=== PATIENT | male | born 1960 | race African-American/Black ===

== ENCOUNTER 2022-10-15 01:32 | Emergency (ER) | payer MEDICAID ==
[~2022-10-15] VITALS: Ht 195.6 cm; Wt 103.7 kg
[~2022-10-15 01:32] MED LIST: CLAR10 MT; EPIN0.3P3 IM; FAMO-135 MT; FLUC200T51 PO; MED4 MT; OMEP20CA14 PO; PRAV40TA58 PO
[2022-10-15 05:45] VITALS: BP 148/90
[2022-10-15] MEDS ORDERED: IBUPROFEN 400MG TABLET PO ONE (05:45)
[2022-10-15 05:57] LABS: BASOPHILS % 0.6 % (0.0-2.0); EOSINOPHILS % 1.2 % (0.0-5.0); HEMATOCRIT. 40.9 % (42.0-52.0); HEMOGLOBIN. 13.6 g/dL (14.0-18.0); LYMPHOCYTES % 23.1 % (20.0-50.0); MEAN CORPUSCULAR HEMOGLOBIN 29.8 pg (28.0-32.0); MEAN CORPUSCULAR VOLUME 89.9 fL (80.0-94.0); MEAN PLATELET VOLUME 7.8 fl (7.4-10.4); MONOCYTES % 7.9 % (2.0-8.0); NEUTROPHILS % 67.2 % (40.0-76.0); PLATELET 227 x1000/uL (130-400); RED BLOOD CELL COUNT 4.55 mill/uL (4.7-6.1); RED CELL DISTRIBUTION WIDTH 16.2 % (11.6-14.6)
[2022-10-15 06:17] LABS: CLARITY URINE CLEAR (CLEAR); COLOR URINE YELLOW (YELLOW); KETONES URINE TRACE (NEGATIVE); LEUKOCYTE ESTERASE URINE NEGATIVE (NEGATIVE); NITRITE URINE NEGATIVE (NEGATIVE); OCCULT BLOOD URINE NEGATIVE (NEGATIVE); PH URINE 5.5 (4.5-8.0); PROTEIN URINE NEGATIVE (NEGATIVE); SPECIFIC GRAVITY URINE 1.022 (1.005-1.030)
[2022-10-15 06:54] LABS: CHLORIDE 101 mEq/L (98-107)
== END 2022-10-15 08:20 | disposition home or self-care (01) ==
LOC: ER 01:47
DX: B34.9 Viral infection, unspecified (principal); E78.00 Pure hypercholesterolemia, unspecified; I10 Essential (primary) hypertension; Z88.8 Allergy status to other drugs, medicaments and biological substances; Z20.822 Contact with and (suspected) exposure to COVID-19; Z98.890 Other specified postprocedural states
CPT/HCPCS: 36415; 71045; 80053; 81003; 85025; 87426; 87804; 99284; C9803

== ENCOUNTER 2023-07-31 15:36 | Emergency (ER) | payer MEDICARE, MEDICAID ==
[~2023-07-31] VITALS: Ht 182.9 cm; Wt 110.0 kg
[~2023-07-31 15:36] MED LIST changes: +NAPR-1074 MT; +ONDA4TAB50 MT
[2023-07-31 15:47] VITALS: O2SAT 99
[2023-07-31] MEDS ORDERED: IBUPROFEN 600MG TABLET PO STA (17:04)
[2023-07-31] MEDS ORDERED: IBUP-2029 PO (17:28)
[2023-07-31 17:55] VITALS: BP 162/67; PULSE 62; RESP 16; TEMP 98.1
== END 2023-07-31 18:15 | disposition home or self-care (01) ==
LOC: ER 15:36
DX: S93.601A Unspecified sprain of right foot, initial encounter (principal); S93.401A Sprain of unspecified ligament of right ankle, initial encounter; X58.XXXA Exposure to other specified factors, initial encounter; Y93.89 Activity, other specified; Y92.89 Other specified places as the place of occurrence of the external cause; Y99.8 Other external cause status
CPT/HCPCS: 73610; 73630; 99284

== ENCOUNTER 2024-10-07 18:51 | Emergency (ER) | payer MEDICAID, MEDICARE ==
[~2024-10-07] VITALS: Ht 195.6 cm; Wt 95.0 kg
[~2024-10-07 18:51] MED LIST changes: +IBUP-2029 PO; -MED4 MT; +METH4TAB95 MT
[2024-10-07 18:53] VITALS: PULSE 77; O2SAT 98
[2024-10-07 19:02] VITALS: BP 161/83; RESP 16; TEMP 36.8; O2SAT 98
[2024-10-07 20:00] LABS: BASOPHILS % 0.9 % (0.0-2.0); HEMATOCRIT. 37.4 % (42.0-52.0); HEMOGLOBIN. 12.6 g/dL (14.0-18.0); MEAN CORPUSCULAR HEMOGLOBIN 30.2 pg (28.0-32.0); MEAN CORPUSCULAR HGB CONC 33.7 g/dL (31.0-37.0); MEAN CORPUSCULAR VOLUME 89.6 fL (80.0-94.0); MEAN PLATELET VOLUME 7.8 fl (7.4-10.4); NEUTROPHILS % 60.1 % (40.0-76.0); PLATELET 258 x1000/uL (130-400); RED BLOOD CELL COUNT 4.18 mill/uL (4.7-6.1); RED CELL DISTRIBUTION WIDTH 15.3 % (11.6-14.6); WHITE BLOOD COUNT 7.6 x1000/uL (4.5-11.0)
[2024-10-07 20:08] LABS: CHLORIDE 105 mEq/L (98-107); POTASSIUM 4.3 mEq/L (3.5-5.1); SODIUM 140 mEq/L (136-145)
[2024-10-07 20:09] LABS: CALCIUM 10.1 mg/dL (8.7-10.4); CARBON DIOXIDE 26 mEq/L (21-32)
[2024-10-07 20:14] LABS: CREATININE 1.6 mg/dL (0.6-1.3); GLUCOSE 93 mg/dL (70-105); UREA NITROGEN BLOOD 23 mg/dL (9-23)
[2024-10-07 20:15] LABS: TROPONIN I HIGH SENSITIVITY 7 ng/L (3.0-53)
== END 2024-10-08 01:55 | disposition left against medical advice (07) ==
LOC: ER 19:04 → EDBEDREQ 10-08 01:29 → EDBEDREQTM 10-08 01:29 → CANBEDREQ 10-08 01:54 → ER 10-08 01:55
DX: R53.1 Weakness (principal); R42 Dizziness and giddiness; R07.89 Other chest pain; E78.00 Pure hypercholesterolemia, unspecified; I10 Essential (primary) hypertension; Z88.8 Allergy status to other drugs, medicaments and biological substances; Z86.711 Personal history of pulmonary embolism; Z79.899 Other long term (current) drug therapy
CPT/HCPCS: 36415; 71045; 80048; 84484; 85025; 93005; 99285